=== PATIENT | male | born 1945 | race Caucasian/White ===

== ENCOUNTER 2020-10-29 22:30 | Observation (INO) | payer MEDICARE, OTHER ==
[2020-10-29] MEDS ORDERED: Sodium Chloride 0.9% 1000 ML 1,000 ML IV SCH (22:45)
--- NOTE | 2020-10-29 22:50 | ERPHSYRPT ---
- History of Present Illness Time Seen by Provider: 10/29/20 22:45 Source: patient, family, EMS Exam Limitations: no limitations Physician History: pt is 75 yr old with hx of falls prior and does not know how he fell but fell over mattresses onto face on floor - on xarelto blood thinner, with left hematoma; has prior tet booster reported last year per pt. neuro all intact. moving all ext but bilateral ribs tender and will get CT chest to r/o internal chest injury on blood thinner, mild neck pain at ROM, abd is nontender with mass or pain. GCS 15, [place] head injury trauma eval scale used and cannot exclude from imaging due to blood thinner, discussed risk and benefit and pt wishes to continue with CT. Occurred: just prior to arrival Severity: moderate Head Injury Location: frontal Method of Injury: fell Loss of Consciousness: no loss of consciousness Associated Symptoms: denies symptoms Allergies/Adverse Reactions: furosemide Allergy (Verified 10/29/20 23:05) latex Allergy (Verified 10/29/20 23:05) tetracycline Allergy (Verified 10/29/20 23:05) Home Medications: Dabigatran Etexilate Mesylate [Pradaxa] 150 mg PO BID 10/29/20 [History] Escitalopram Oxalate 10 mg [Lexapro 10 MG] 10 mg PO DAILY 10/29/20 [History] Fexofenadine HCl [Kailey] 60 mg PO BID 10/29/20 [History] Metoprolol Tartrate 25 mg PO DAILY 10/29/20 [History] Omeprazole 40 mg PO DAILY 10/29/20 [History] Rosuvastatin Calcium 40 mg PO HS 10/29/20 [History] Timolol Maleate/Dorzolam HCl [Cosopt Ophthalmic 10 ml] 1 drop OP BID 10/29/20 [History] Torsemide 20 mg [Demadex 20 mg] 20 mg PO BID 10/29/20 [History] - Review of Systems Constitutional: No Fever, No Chills Eyes: No Symptoms Ears, Nose, & Throat: Other (trauma left eyebrow) Respiratory: No Cough, No Dyspnea Cardiac: No Chest Pain, No Edema, No Syncope Abdominal/Gastrointestinal: No Abdominal Pain, No Nausea, No Vomiting, No Diarrhea Genitourinary Symptoms: No Dysuria Musculoskeletal: Neck Pain, Fall, No Back Pain Skin: No Rash Neurological: No Dizziness, No Focal Weakness, No Sensory Changes Psychological: No Symptoms Endocrine: No Symptoms Hematologic/Lymphatic: Other (on blood thinner) Immunological/Allergic: No Symptoms All Other Systems: Reviewed and Negative - Past Medical History Pertinent Past Medical History: Yes Cardiac History: Coronary Artery Disease Respiratory History: COPD - Nursing Vital Signs Nursing Vital Signs: Initial Vital Signs Temperature 98.2 F 10/29/20 22:31 Pulse Rate 72 10/29/20 22:31 Respiratory Rate 20 10/29/20 22:31 Blood Pressure 198/86 10/29/20 22:31 O2 Sat by Pulse Oximetry 99 10/29/20 22:31 Pain Scale Pain Intensity 0 - Manny Coma Score Best Eye Response (Manny): (4) open spontaneously Best Verbal Response ([address]): (5) oriented Best Motor Response ([address]): (6) obeys commands [address] Total: 15 - Physical Exam General Appearance: no apparent distress, alert Head Injury: ecchymosis, lacerations, swelling, tenderness Eye Exam: bilateral eye: PERRL, EOMI ENT Exam: airway nml Neck Exam: trachea midline, pain on movement of neck Cardiovascular/Respiratory Exam: chest non-tender, normal breath sounds, regular rate/rhythm Gastrointestinal/Abdominal Exam: soft, non tender, no distention Rectal Exam: deferred Back Exam: normal inspection, normal range of motion, No vertebral tenderness, No point tenderness Extremity Exam: non-tender, normal range of motion, normal inspection Mental Status Exam: alert, oriented x 3, 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 Exam: normal speech, PERRL, tongue midline, No facial droop Coordination/Gait Exam: normal cerebellar function Motor/Sensory Exam: no motor deficit, no sensory deficit, no pronator drift, CN II-XII intact DTR Exam: bicep (R): 2+, bicep (L): 2+, tricep (R): 2+, tricep (L): 2+, knee (R): 2+, knee (L): 2+, ankle (R): 2+, ankle (L): 2+ Skin Exam: normal color, warm, dry, laceration (left eyebrow), No rash SpO2 Interpretation: borderline oxygenation, O2 applied SpO2: 97 O2 Delivery: Nasal Cannula Procedures - Laceration/Wound Repair Left Frontal Wound Location: Left, forehead Wound Length (cm): 4 Wound's Depth, Shape: irregular, contused tissue, into subcut Wound Explored: no foreign body noted Irrigated: Yes (NS 100 cc ) Hibiclens Prep: Yes Anesthesia: local, 1% Lidocaine Volume Anesthetic (ccs): 4 Wound Debrided: minimal Wound Repaired With: sutures Suture Size/Type: 5-0, prolene Number of Sutures: 5 Layer Closure?: No Sterile Dressing Applied?: Yes Splint Applied?: No Sling Applied?: No - Course Nursing assessment & vital signs reviewed: Yes EKG Interpreted by Me: prolonged QT interval, Left Bundle Branch Block, Non- specific ST Changes, Other (pacer) - CT Exams Head CT Interpretation: Tele-radiologist Report, No/Intracranial Hemorrhag, Old Stroke (old lacunar cva s ), Other (left scalp lac/hematoma soft tissues) Cervical Spine CT Interpretation: Tele-radiologist Report, DJD, No Fracture, Other (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) Maxillofacial Bones CT Interpretation: Tele-radiologist Report, No Fracture, Other (left facial swelling/hematoma) Chest CT Interpretation: Tele-radiologist Report, Fracture (bilateral multiple ribs Fx), No PE, Other (Left effusion small right effusion, Right liver mass, CAD , cholelithiasis, ) Ordered Tests: Active Orders 24 hr Category Date Time Status Bus [employer] STAT Care 10/29/20 22:42 Active EKG-ER Only STAT Care 10/29/20 22:41 Active IV Insertion STAT Care 10/29/20 23:11 Active Oxygen-ED Only Nasal Cannula 2 lpm Care 10/29/20 22:41 Active Pulse Oximetry (ED) STAT Care 10/29/20 22:41 Active CERVICAL SPINE WO CONTRAST [CT] Stat Exams 10/29/20 22:37 Taken CHEST WITH CONTRAST [CT] Stat Exams 10/29/20 23:31 Taken FACIAL BONES WO CONTRAST [CT] Stat Exams 10/29/20 22:38 Taken HEAD WITHOUT CONTRAST [CT] Stat Exams 10/29/20 22:38 Taken CBC W DIFF Stat Lab 10/29/20 23:05 Completed CMP Stat Lab 10/29/20 23:05 Completed D-DIMER QUANTITATIVE Stat Lab 10/29/20 23:05 Completed Lactic Acid Stat Lab 10/29/20 22:58 Completed NT PRO BNP Stat Lab 10/29/20 23:05 Completed TROPONIN Q3H Lab 10/29/20 23:05 Completed TROPONIN Q3H Lab 10/30/20 01:45 Ordered TROPONIN Q3H Lab 10/30/20 04:45 Ordered TROPONIN Q3H Lab 10/30/20 07:45 Ordered TROPONIN Q3H Lab 10/30/20 10:45 Ordered UA W/RFX UR CULTURE Stat Lab 10/29/20 23:26 Completed Medication Summary Generic Name Dose Route Start Last Admin Trade Name Freq PRN Reason Stop Dose Admin Sodium Chloride 1,000 mls @ 100 mls/hr 10/29/20 22:45 10/29/20 23:00 Sodium Chloride 0.9% 1000 Ml IV 11/28/20 22:44 100 mls/hr .Q10H VANESSA Administration Discontinued Medications Generic Name Dose Route Start Last Admin Trade Name Freq PRN Reason Stop Dose Admin Lidocaine HCl Confirm 10/29/20 22:56 Xylocaine 1% Hcl 20 Ml Mdv Administered 10/29/20 22:57 Dose 5 ml .ROUTE .STK-MED ONE Metoprolol Tartrate 25 mg 10/30/20 00:11 10/30/20 00:26 Lopressor 25mg Tab PO 10/30/20 00:12 25 mg STAT ONE Administration Metoprolol Tartrate Confirm 10/30/20 00:26 Lopressor 25mg Tab Administered 10/30/20 00:27 Dose 25 mg .ROUTE .STK-MED ONE Lab/Rad Data: Laboratory Result Diagrams 10/29/20 23:05 10/29/20 23:05 Laboratory Results 10/29/20 10/29/20 10/29/20 Range/Units 23:26 23:05 23:05 WBC (4.0-10.5) K/mm3 RBC (4.1-5.6) M/mm3 Hgb (12.5-18.0) gm/dl Hct (42-50) % MCV (78-100) fl MCH (26-32) pg MCHC (32-36) g/dl RDW (11.5-14.0) % Plt Count (150-450) K/mm3 MPV (7.5-11.0) fl Gran % (36.0-66.0) % Eos # (Auto) (0-0.5) Absolute Lymphs (auto) (1.0-4.6) Absolute Monos (auto) (0.0-1.3) Lymphocytes % (24.0-44.0) % Monocytes % (0.0-12.0) % Eosinophils % (0.00-5.0) % Basophils % (0.0-0.4) % Absolute Granulocytes (1.4-6.9) Basophils # (0-0.4) D-Dimer 4949 H* (215-500) ng/mL Sodium (137-145) mmol/L Potassium (3.5-5.1) mmol/L Chloride (98-107) mmol/L Carbon Dioxide (22-30) mmol/L Anion Gap (5-15) MEQ/L BUN (9-20) mg/dL Creatinine (0.66-1.25) mg/dL Estimated GFR ML/MIN Glucose (74-106) mg/dL Lactic Acid (0.4-2.0) Calcium (8.4-10.2) mg/dL Total Bilirubin (0.2-1.3) mg/dL AST (17-59) U/L ALT (0-50) U/L Alkaline Phosphatase (38-126) U/L Troponin I 0.032 (0.000-0.034) ng/mL NT-Pro-B Natriuret Pep (0-1800) pg/mL Serum Total Protein (6.3-8.2) g/dL Albumin (3.5-5.0) g/dL Urine Color YELLOW (YELLOW) Urine Appearance SLIGHTLY CLOUDY (CLEAR) Urine pH 5.0 (5-6) Ur Specific [place] 1.015 (1.005-1.025) Urine Protein 100 (Negative) Urine Ketones NEGATIVE (NEGATIVE) Urine Blood NEGATIVE (0-5) Yung/ul Urine Nitrite NEGATIVE (NEGATIVE) Urine Bilirubin NEGATIVE (NEGATIVE) Urine Urobilinogen 2 (0-1) mg/dL Ur Leukocyte Esterase NEGATIVE (NEGATIVE) Urine WBC (Auto) 0-2 (0-5) /HPF Urine RBC (Auto) 0-2 (0-2) /HPF U Hyaline Cast (Auto) 11-25 (0-2) /LPF U Epithel Cells (Auto) NONE (FEW) /HPF Urine Bacteria (Auto) NONE (NEGATIVE) /HPF Urine Mucus (Auto) SLIGHT (NEGATIVE) /HPF Urine Culture Reflexed NO (NO) Urine Glucose 50 (NEGATIVE) mg/dL Slides for Path Review 10/29/20 10/29/20 10/29/20 Range/Units 23:05 23:05 22:58 WBC 3.7 L (4.0-10.5) K/mm3 RBC 4.17 (4.1-5.6) M/mm3 Hgb 11.8 L (12.5-18.0) gm/dl Hct 38.5 L (42-50) % MCV 92.3 (78-100) fl MCH 28.3 (26-32) pg MCHC 30.6 L (32-36) g/dl RDW 14.9 H (11.5-14.0) % Plt Count 160 (150-450) K/mm3 MPV 10.1 (7.5-11.0) fl Gran % 75.1 H (36.0-66.0) % Eos # (Auto) 0.07 (0-0.5) Absolute Lymphs (auto) 0.43 L (1.0-4.6) Absolute Monos (auto) 0.41 (0.0-1.3) Lymphocytes % 11.6 L (24.0-44.0) % Monocytes % 11.1 (0.0-12.0) % Eosinophils % 1.9 (0.00-5.0) % Basophils % 0.3 (0.0-0.4) % Absolute Granulocytes 2.78 (1.4-6.9) Basophils # 0.01 (0-0.4) D-Dimer (215-500) ng/mL Sodium 136 L (137-145) mmol/L Potassium 3.7 (3.5-5.1) mmol/L Chloride 97 L (98-107) mmol/L Carbon Dioxide 36 H (22-30) mmol/L Anion Gap 6.5 (5-15) MEQ/L BUN 21 H (9-20) mg/dL Creatinine 0.97 (0.66-1.25) mg/dL Estimated GFR > 60.0 ML/MIN Glucose 265 H (74-106) mg/dL Lactic Acid 1.0 (0.4-2.0) Calcium 9.4 (8.4-10.2) mg/dL Total Bilirubin 0.40 (0.2-1.3) mg/dL AST 66 H (17-59) U/L ALT 35 (0-50) U/L Alkaline Phosphatase 371 H (38-126) U/L Troponin I (0.000-0.034) ng/mL NT-Pro-B Natriuret Pep 3740 H (0-1800) pg/mL Serum Total Protein 6.2 L (6.3-8.2) g/dL Albumin 3.3 L (3.5-5.0) g/dL Urine Color (YELLOW) Urine Appearance (CLEAR) Urine pH (5-6) Ur Specific [place] (1.005-1.025) Urine Protein (Negative) Urine Ketones (NEGATIVE) Urine Blood (0-5) Yung/ul Urine Nitrite (NEGATIVE) Urine Bilirubin (NEGATIVE) Urine Urobilinogen (0-1) mg/dL Ur Leukocyte Esterase (NEGATIVE) Urine WBC (Auto) (0-5) /HPF Urine RBC (Auto) (0-2) /HPF U Hyaline Cast (Auto) (0-2) /LPF U Epithel Cells (Auto) (FEW) /HPF Urine Bacteria (Auto) (NEGATIVE) /HPF Urine Mucus (Auto) (NEGATIVE) /HPF Urine Culture Reflexed (NO) Urine Glucose (NEGATIVE) mg/dL Slides for Path Review YES - Progress Progress: improved, re-examined Progress Note: 10/30/20 01:15 discussed with pt, daughter and Dr. Linn covering and all agree best to place pt in for obs and serial trops , neuro and PT consult with f/u arranged for lever mass. 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
[2020-10-29] MEDS ORDERED: XYLOCAINE 1% HCL 20 ML MDV ONE (22:56)
[2020-10-29] MEDS ORDERED: Sodium Chloride 0.9% 1000 ML 1,000 ML ONE (22:58)
[2020-10-29 23:20] LABS: Absolute Neutrophil Ct (ANC) 2.78 (1.4-6.9); BASOPHIL % 0.3 % (0.0-0.4); Basophil (Absolute #) 0.01 (0-0.4); Eosinophil % 1.9 % (0.00-5.0); Eosinophil (Absolute #) 0.07 (0-0.5); Hematocrit 38.5 % (42-50); Hemoglobin 11.8 gm/dl (12.5-18.0); Lymphocyte (Absolute #) 0.43 (1.0-4.6); Lymphocytes % 11.6 % (24.0-44.0); Mean Cell Volume 92.3 fl (78-100); Mean Corpuscular Hemoglobin 28.3 pg (26-32); Mean Corpuscular Hgb Concent. 30.6 g/dl (32-36); Mean Platelet Volume 10.1 fl (7.5-11.0); Monocyte (Absolute #) 0.41 (0.0-1.3); Monocytes % 11.1 % (0.0-12.0); Neutrophil % 75.1 % (36.0-66.0); Platelet Count 160 K/mm3 (150-450); Red Blood Count 4.17 M/mm3 (4.1-5.6); Red Cell Distribution Width 14.9 % (11.5-14.0); White Blood Count 3.7 K/mm3 (4.0-10.5)
[2020-10-29 23:24] LABS: ALBUMIN 3.3 g/dL (3.5-5.0); ALKALINE PHOSPHATASE 371 U/L (38-126); ANION GAP 6.5 MEQ/L (5-15); BLOOD UREA NITROGEN 21 mg/dL (9-20); CHLORIDE 97 mmol/L (98-107); Calcium 9.4 mg/dL (8.4-10.2); Carbon Dioxide 36 mmol/L (22-30); Creatinine 1 0.97 mg/dL (0.66-1.25); EST GLOMERULAR FILTRATION RATE > 60.0 ML/MIN; Glucose 265 mg/dL (74-106); NT PRO BNP 3740 pg/mL (0-1800); Potassium 3.7 mmol/L (3.5-5.1); SGOT/AST 66 U/L (17-59); SGPT/ALT 35 U/L (0-50); SODIUM 136 mmol/L (137-145); Total Protein 6.2 g/dL (6.3-8.2)
[2020-10-29 23:30] LABS: Appearance SLIGHTLY CLOUDY (CLEAR); Bilirubin NEGATIVE (NEGATIVE); Blood NEGATIVE Ery/ul (0-5); Glucose 50 mg/dL (NEGATIVE); Ketones NEGATIVE (NEGATIVE); Leukocyte Esterase NEGATIVE (NEGATIVE); Mucus SLIGHT /HPF (NEGATIVE); Nitrite NEGATIVE (NEGATIVE); Protein,Urine Dip 100 (Negative); RBC 0-2 /HPF (0-2); Specific Gravity 1.015 (1.005-1.025); Urobilinogen 2 mg/dL (0-1); WBC 0-2 /HPF (0-5)
[2020-10-29 23:59] LABS: Slide Review 1 YES
[2020-10-30] MEDS ORDERED: Lopressor 25MG Tab PO ONE (00:11)
[2020-10-30] MEDS ORDERED: Lopressor 25MG Tab ONE (00:26)
[2020-10-30 02:29] LABS: INFLUENZA A NEGATIVE (NEGATIVE); INFLUENZA B NEGATIVE (NEGATIVE); RESPIRATORY SYNCTIAL VIRUS NEGATIVE (Negative)
[2020-10-30] MEDS ORDERED: Zofran 4 MG/2 ML VIAL IV PRN (03:12)
[2020-10-30] MEDS ORDERED: TYLENOL 325 MG PO PRN (03:12)
[2020-10-30] MEDS ORDERED: TRANDATE 20 MG/4 ML SYRINGE IV ONE (04:00)
[2020-10-30] MEDS: Sodium Chloride 0.9% 1000 ML 1,000 ML IV SCH ×2 (04:04→14:50)
[2020-10-30 05:44] LABS: Absolute Neutrophil Ct (ANC) 3.37 (1.4-6.9); BASOPHIL % 0.2 % (0.0-0.4); Basophil (Absolute #) 0.01 (0-0.4); Eosinophil % 0.7 % (0.00-5.0); Eosinophil (Absolute #) 0.03 (0-0.5); Hematocrit 37.4 % (42-50); Hemoglobin 11.5 gm/dl (12.5-18.0); Lymphocyte (Absolute #) 0.42 (1.0-4.6); Lymphocytes % 9.6 % (24.0-44.0); Mean Cell Volume 92.1 fl (78-100); Mean Corpuscular Hemoglobin 28.3 pg (26-32); Mean Corpuscular Hgb Concent. 30.7 g/dl (32-36); Mean Platelet Volume 10.1 fl (7.5-11.0); Monocyte (Absolute #) 0.53 (0.0-1.3); Monocytes % 12.2 % (0.0-12.0); Neutrophil % 77.3 % (36.0-66.0); Platelet Count 169 K/mm3 (150-450); Red Blood Count 4.06 M/mm3 (4.1-5.6); Red Cell Distribution Width 14.8 % (11.5-14.0); White Blood Count 4.4 K/mm3 (4.0-10.5)
[2020-10-30 05:55] LABS: ALBUMIN 3.2 g/dL (3.5-5.0); ALKALINE PHOSPHATASE 353 U/L (38-126); ANION GAP 5.1 MEQ/L (5-15); BLOOD UREA NITROGEN 21 mg/dL (9-20); CHLORIDE 99 mmol/L (98-107); Calcium 9.4 mg/dL (8.4-10.2); Carbon Dioxide 35 mmol/L (22-30); Creatinine 1 0.71 mg/dL (0.66-1.25); EST GLOMERULAR FILTRATION RATE > 60.0 ML/MIN; Glucose 263 mg/dL (74-106); Potassium 3.6 mmol/L (3.5-5.1); SGOT/AST 57 U/L (17-59); SGPT/ALT 34 U/L (0-50); SODIUM 135 mmol/L (137-145); Total Protein 6.1 g/dL (6.3-8.2)
[2020-10-30 07:42] LABS: Slide Review 1 YES
--- NOTE | 2020-10-30 08:37 | PCM.HP ---
History of Present Illness - Chief Complaint Chief Complaint: multiple rib fractures with COPD and effusion; Right liver Mass wt loss; History of Present Illness: is a 75 year old male with no local physician, he presented to the ER last night after a fall at home. he was getting up to switch chairs and states his left leg gave out, has a laceration above his left eye with bruising and swelling to left orbit, he is on pradaxa, sees Dr Posey for his cardiac care. He notes progressive increased weakness and weight loss over the last several weeks. He has pain in his chest only with movement, states he feels ok as long as he sits still. - Review of Systems Constitutional: No Fever, No Chills Eyes: Eye Pain Cardiac: Chest Pain Abdominal/Gastrointestinal: No Abdominal Pain, No Nausea, No Vomiting, No Diarrhea Genitourinary Symptoms: No Dysuria Skin: No Rash Neurological: No Symptoms Psychological: No Symptoms All Other Systems: Reviewed and Negative Medications & Allergies Home Medications: Home Medication List Dabigatran Etexilate Mesylate [Pradaxa] 150 mg PO BID 10/29/20 [History Confirmed 10/29/20] Escitalopram Oxalate 10 mg [Lexapro 10 MG] 20 mg PO DAILY 10/29/20 [History Confirmed 10/30/20] Fexofenadine HCl [Kailey] 60 mg PO BID 10/29/20 [History Confirmed 10/29/20] Metoprolol Tartrate 25 mg PO DAILY 10/29/20 [History Confirmed 10/29/20] Omeprazole 40 mg PO DAILY 10/29/20 [History Confirmed 10/29/20] Rosuvastatin Calcium 40 mg PO HS 10/29/20 [History Confirmed 10/29/20] Timolol Maleate/Dorzolam HCl [Cosopt Ophthalmic 10 ml] 1 drop OP BID 10/29/20 [History Confirmed 10/29/20] Torsemide 20 mg [Demadex 20 mg] 20 mg PO BID 10/29/20 [History Confirmed 10/29/20] Allergies/Adverse Reactions: Allergies Allergy/AdvReac Type Severity Reaction Status Date / Time adhesive tape Allergy Verified 10/30/20 04:10 latex Allergy Verified 10/29/20 23:05 tetracycline Allergy Verified 10/29/20 23:05 - Past Medical History Past Medical History: Yes Neurological History: No Pertinent History ENT History: Cataracts, Macular Degeneration Cardiac History: Congestive Heart Failure, Coronary Artery Disease, Hypertension, Myocardial Infarction ([place]) Respiratory History: COPD, Pneumonia Endocrine Medical History: Diabetes Type II Musculoskelatal History: Arthritis, Fractures GI Medical History: GERD History: No Pertinent History Pyscho-Social History: Depression Male Reproductive Disorders: No Pertinent History - Past Surgical History Past Surgical History: Yes Neuro Surgical History: No Pertinent History Cardiac History: CABG, Internal Defibrillator, Pacemaker Respiratory Surgery: No Pertinent History GI Surgical History: No Pertinent History Genitourinary Surgical Hx: No Pertinent History Musculskeletal Surgical Hx: No Pertinent History Male Surgical History: No Pertinent History Other Surgical History: CABG X 4 in 1972 - Social History Smoking Status: Former smoker How long have you smoked: 15 years Exposure to second hand smoke: No Alcohol: Rarely Drug Use: none - Physical Exam Vital Signs: Vital Signs - 24 hr Temp Pulse Resp BP Pulse Ox 10/30/20 08:00 97.3 F 64 27 H 189/71 97 10/30/20 04:11 98.5 F 75 20 196/92 99 10/30/20 03:34 77 23 99 10/30/20 03:03 70 178/80 100 10/30/20 02:00 61 18 182/75 99 10/30/20 01:20 97 10/30/20 01:00 59 L 18 190/82 100 10/30/20 00:07 77 210/87 97 10/29/20 23:10 90 L 10/29/20 22:31 98.2 F 72 20 198/86 99 General Appearance: no apparent distress Neurologic Exam: alert, oriented x 3, cooperative Eye Exam: other (left periorbital ecchymosis with significant swelling, well approximated laceration above left eye, no active bleeding) Respiratory Exam: normal breath sounds, other (chest wall tender bilaterally) Cardiovascular Exam: regular rate/rhythm, normal heart sounds, normal peripheral pulses Gastrointestinal/Abdomen Exam: soft, normal bowel sounds, No tenderness, No mass Results - Labs Lab/Micro Results: Lab Results-Last 24 Hours 10/29/20 10/29/20 10/29/20 Range/Units 22:58 23:05 23:05 WBC 3.7 L (4.0-10.5) K/mm3 RBC 4.17 (4.1-5.6) M/mm3 Hgb 11.8 L (12.5-18.0) gm/dl Hct 38.5 L (42-50) % MCV 92.3 (78-100) fl MCH 28.3 (26-32) pg MCHC 30.6 L (32-36) g/dl RDW 14.9 H (11.5-14.0) % Plt Count 160 (150-450) K/mm3 MPV 10.1 (7.5-11.0) fl Gran % 75.1 H (36.0-66.0) % Eos # (Auto) 0.07 (0-0.5) Absolute Lymphs (auto) 0.43 L (1.0-4.6) Absolute Monos (auto) 0.41 (0.0-1.3) Lymphocytes % 11.6 L (24.0-44.0) % Monocytes % 11.1 (0.0-12.0) % Eosinophils % 1.9 (0.00-5.0) % Basophils % 0.3 (0.0-0.4) % Absolute Granulocytes 2.78 (1.4-6.9) Basophils # 0.01 (0-0.4) D-Dimer (215-500) ng/mL Sodium 136 L (137-145) mmol/L Potassium 3.7 (3.5-5.1) mmol/L Chloride 97 L (98-107) mmol/L Carbon Dioxide 36 H (22-30) mmol/L Anion Gap 6.5 (5-15) MEQ/L BUN 21 H (9-20) mg/dL Creatinine 0.97 (0.66-1.25) mg/dL Estimated GFR > 60.0 ML/MIN Glucose 265 H (74-106) mg/dL POC Glucometer (74 to 106) mg/dL Lactic Acid 1.0 (0.4-2.0) Calcium 9.4 (8.4-10.2) mg/dL Total Bilirubin 0.40 (0.2-1.3) mg/dL AST 66 H (17-59) U/L ALT 35 (0-50) U/L Alkaline Phosphatase 371 H (38-126) U/L Troponin I (0.000-0.034) ng/mL NT-Pro-B Natriuret Pep 3740 H (0-1800) pg/mL Serum Total Protein 6.2 L (6.3-8.2) g/dL Albumin 3.3 L (3.5-5.0) g/dL Urine Color (YELLOW) Urine Appearance (CLEAR) Urine pH (5-6) Ur Specific [place] (1.005-1.025) Urine Protein (Negative) Urine Ketones (NEGATIVE) Urine Blood (0-5) Yung/ul Urine Nitrite (NEGATIVE) Urine Bilirubin (NEGATIVE) Urine Urobilinogen (0-1) mg/dL Ur Leukocyte Esterase (NEGATIVE) Urine WBC (Auto) (0-5) /HPF Urine RBC (Auto) (0-2) /HPF U Hyaline Cast (Auto) (0-2) /LPF U Epithel Cells (Auto) (FEW) /HPF Urine Bacteria (Auto) (NEGATIVE) /HPF Urine Mucus (Auto) (NEGATIVE) /HPF Urine Culture Reflexed (NO) Urine Glucose (NEGATIVE) mg/dL Influenza Type A Ag (NEGATIVE) Influenza Type B Ag (NEGATIVE) RSV (PCR) (Negative) SARS-CoV-2 (PCR) (NEGATIVE) Slides for Path Review YES 10/29/20 10/29/20 10/29/20 Range/Units 23:05 23:05 23:26 WBC (4.0-10.5) K/mm3 RBC (4.1-5.6) M/mm3 Hgb (12.5-18.0) gm/dl Hct (42-50) % MCV (78-100) fl MCH (26-32) pg MCHC (32-36) g/dl RDW (11.5-14.0) % Plt Count (150-450) K/mm3 MPV (7.5-11.0) fl Gran % (36.0-66.0) % Eos # (Auto) (0-0.5) Absolute Lymphs (auto) (1.0-4.6) Absolute Monos (auto) (0.0-1.3) Lymphocytes % (24.0-44.0) % Monocytes % (0.0-12.0) % Eosinophils % (0.00-5.0) % Basophils % (0.0-0.4) % Absolute Granulocytes (1.4-6.9) Basophils # (0-0.4) D-Dimer 4949 H* (215-500) ng/mL Sodium (137-145) mmol/L Potassium (3.5-5.1) mmol/L Chloride (98-107) mmol/L Carbon Dioxide (22-30) mmol/L Anion Gap (5-15) MEQ/L BUN (9-20) mg/dL Creatinine (0.66-1.25) mg/dL Estimated GFR ML/MIN Glucose (74-106) mg/dL POC Glucometer (74 to 106) mg/dL Lactic Acid (0.4-2.0) Calcium (8.4-10.2) mg/dL Total Bilirubin (0.2-1.3) mg/dL AST (17-59) U/L ALT (0-50) U/L Alkaline Phosphatase (38-126) U/L Troponin I 0.032 (0.000-0.034) ng/mL NT-Pro-B Natriuret Pep (0-1800) pg/mL Serum Total Protein (6.3-8.2) g/dL Albumin (3.5-5.0) g/dL Urine Color YELLOW (YELLOW) Urine Appearance SLIGHTLY CLOUDY (CLEAR) Urine pH 5.0 (5-6) Ur Specific [place] 1.015 (1.005-1.025) Urine Protein 100 (Negative) Urine Ketones NEGATIVE (NEGATIVE) Urine Blood NEGATIVE (0-5) Yung/ul Urine Nitrite NEGATIVE (NEGATIVE) Urine Bilirubin NEGATIVE (NEGATIVE) Urine Urobilinogen 2 (0-1) mg/dL Ur Leukocyte Esterase NEGATIVE (NEGATIVE) Urine WBC (Auto) 0-2 (0-5) /HPF Urine RBC (Auto) 0-2 (0-2) /HPF U Hyaline Cast (Auto) 11-25 (0-2) /LPF U Epithel Cells (Auto) NONE (FEW) /HPF Urine Bacteria (Auto) NONE (NEGATIVE) /HPF Urine Mucus (Auto) SLIGHT (NEGATIVE) /HPF Urine Culture Reflexed NO (NO) Urine Glucose 50 (NEGATIVE) mg/dL Influenza Type A Ag (NEGATIVE) Influenza Type B Ag (NEGATIVE) RSV (PCR) (Negative) SARS-CoV-2 (PCR) (NEGATIVE) Slides for Path Review 03/15/21 03/15/21 03/15/21 Range/Units 01:40 01:48 04:20 WBC 4.4 (4.0-10.5) K/mm3 RBC 4.06 L (4.1-5.6) M/mm3 Hgb 11.5 L (12.5-18.0) gm/dl Hct 37.4 L (42-50) % MCV 92.1 (78-100) fl MCH 28.3 (26-32) pg MCHC 30.7 L (32-36) g/dl RDW 14.8 H (11.5-14.0) % Plt Count 169 (150-450) K/mm3 MPV 10.1 (7.5-11.0) fl Gran % 77.3 H (36.0-66.0) % Eos # (Auto) 0.03 (0-0.5) Absolute Lymphs (auto) 0.42 L (1.0-4.6) Absolute Monos (auto) 0.53 (0.0-1.3) Lymphocytes % 9.6 L (24.0-44.0) % Monocytes % 12.2 H (0.0-12.0) % Eosinophils % 0.7 (0.00-5.0) % Basophils % 0.2 (0.0-0.4) % Absolute Granulocytes 3.37 (1.4-6.9) Basophils # 0.01 (0-0.4) D-Dimer (215-500) ng/mL Sodium (137-145) mmol/L Potassium (3.5-5.1) mmol/L Chloride (98-107) mmol/L Carbon Dioxide (22-30) mmol/L Anion Gap (5-15) MEQ/L BUN (9-20) mg/dL Creatinine (0.66-1.25) mg/dL Estimated GFR ML/MIN Glucose (74-106) mg/dL POC Glucometer (74 to 106) mg/dL Lactic Acid (0.4-2.0) Calcium (8.4-10.2) mg/dL Total Bilirubin (0.2-1.3) mg/dL AST (17-59) U/L ALT (0-50) U/L Alkaline Phosphatase (38-126) U/L Troponin I 0.043 H* (0.000-0.034) ng/mL NT-Pro-B Natriuret Pep (0-1800) pg/mL Serum Total Protein (6.3-8.2) g/dL Albumin (3.5-5.0) g/dL Urine Color (YELLOW) Urine Appearance (CLEAR) Urine pH (5-6) Ur Specific [place] (1.005-1.025) Urine Protein (Negative) Urine Ketones (NEGATIVE) Urine Blood (0-5) Yung/ul Urine Nitrite (NEGATIVE) Urine Bilirubin (NEGATIVE) Urine Urobilinogen (0-1) mg/dL Ur Leukocyte Esterase (NEGATIVE) Urine WBC (Auto) (0-5) /HPF Urine RBC (Auto) (0-2) /HPF U Hyaline Cast (Auto) (0-2) /LPF U Epithel Cells (Auto) (FEW) /HPF Urine Bacteria (Auto) (NEGATIVE) /HPF Urine Mucus (Auto) (NEGATIVE) /HPF Urine Culture Reflexed (NO) Urine Glucose (NEGATIVE) mg/dL Influenza Type A Ag NEGATIVE (NEGATIVE) Influenza Type B Ag NEGATIVE (NEGATIVE) RSV (PCR) NEGATIVE (Negative) SARS-CoV-2 (PCR) NEGATIVE (NEGATIVE) Slides for Path Review YES 10/30/20 10/30/20 10/30/20 Range/Units 04:20 04:45 07:59 WBC (4.0-10.5) K/mm3 RBC (4.1-5.6) M/mm3 Hgb (12.5-18.0) gm/dl Hct (42-50) % MCV (78-100) fl MCH (26-32) pg MCHC (32-36) g/dl RDW (11.5-14.0) % Plt Count (150-450) K/mm3 MPV (7.5-11.0) fl Gran % (36.0-66.0) % Eos # (Auto) (0-0.5) Absolute Lymphs (auto) (1.0-4.6) Absolute Monos (auto) (0.0-1.3) Lymphocytes % (24.0-44.0) % Monocytes % (0.0-12.0) % Eosinophils % (0.00-5.0) % Basophils % (0.0-0.4) % Absolute Granulocytes (1.4-6.9) Basophils # (0-0.4) D-Dimer (215-500) ng/mL Sodium 135 L (137-145) mmol/L Potassium 3.6 (3.5-5.1) mmol/L Chloride 99 (98-107) mmol/L Carbon Dioxide 35 H (22-30) mmol/L Anion Gap 5.1 (5-15) MEQ/L BUN 21 H (9-20) mg/dL Creatinine 0.71 (0.66-1.25) mg/dL Estimated GFR > 60.0 ML/MIN Glucose 263 H (74-106) mg/dL POC Glucometer 206 H (74 to 106) mg/dL Lactic Acid (0.4-2.0) Calcium 9.4 (8.4-10.2) mg/dL Total Bilirubin 0.40 (0.2-1.3) mg/dL AST 57 (17-59) U/L ALT 34 (0-50) U/L Alkaline Phosphatase 353 H (38-126) U/L Troponin I 0.048 H* (0.000-0.034) ng/mL NT-Pro-B Natriuret Pep (0-1800) pg/mL Serum Total Protein 6.1 L (6.3-8.2) g/dL Albumin 3.2 L (3.5-5.0) g/dL Urine Color (YELLOW) Urine Appearance (CLEAR) Urine pH (5-6) Ur Specific [place] (1.005-1.025) Urine Protein (Negative) Urine Ketones (NEGATIVE) Urine Blood (0-5) Yung/ul Urine Nitrite (NEGATIVE) Urine Bilirubin (NEGATIVE) Urine Urobilinogen (0-1) mg/dL Ur Leukocyte Esterase (NEGATIVE) Urine WBC (Auto) (0-5) /HPF Urine RBC (Auto) (0-2) /HPF U Hyaline Cast (Auto) (0-2) /LPF U Epithel Cells (Auto) (FEW) /HPF Urine Bacteria (Auto) (NEGATIVE) /HPF Urine Mucus (Auto) (NEGATIVE) /HPF Urine Culture Reflexed (NO) Urine Glucose (NEGATIVE) mg/dL Influenza Type A Ag (NEGATIVE) Influenza Type B Ag (NEGATIVE) RSV (PCR) (Negative) SARS-CoV-2 (PCR) (NEGATIVE) Slides for Path Review Accuchecks Date 10/30/20 Time 07:30 - Radiology Impressions Radiology Exams & Impressions: Radiology Procedures Category Date Time Status CERVICAL SPINE WO CONTRAST [CT] Stat Exams 10/29/20 22:37 Taken CHEST WITH CONTRAST [CT] Stat Exams 10/29/20 23:31 Taken FACIAL BONES WO CONTRAST [CT] Stat Exams 10/29/20 22:38 Taken HEAD WITHOUT CONTRAST [CT] Stat Exams 10/29/20 22:38 Taken - Other Procedures and Tests Respiratory Therapy 10/30/20 03:12 Oxygen Nasal Cannula 2 lpm 10/30/20 04:08 Respiratory Therapy Assessment DAILY 10/30/20 05:37 Incentive Spirometry TID Assessment/Plan (1) Multiple fractures of ribs, bilateral, initial encounter for closed fracture Current Visit: Yes Status: Acute Assessment & Plan: pain control, will consult PT Code(s): S22.43XA - MULTIPLE FRACTURES OF RIBS, BILATERAL, INIT FOR CLOS FX (2) Liver mass, right lobe Current Visit: Yes Status: Acute Assessment & Plan: discussed with patient will need outpatient workup and biopsy but will need to likely heal some from fall and laceration and multiple rib fractures Code(s): R16.0 - HEPATOMEGALY, NOT ELSEWHERE CLASSIFIED (3) Weakness Current Visit: Yes Status: Acute Code(s): R53.1 - WEAKNESS (4) Cholelithiasis Current Visit: Yes Status: Acute (5) Facial laceration Current Visit: Yes Status: Acute Assessment & Plan: well approximated Code(s): S01.81XA - LACERATION W/O FOREIGN BODY OF OTH PART OF HEAD, INIT ENCNTR (6) Injury of face Current Visit: Yes Status: Acute Code(s): S09.93XA - UNSPECIFIED INJURY OF FACE, INITIAL ENCOUNTER
[2020-10-30] MEDS ORDERED: APRESOLINE 20 MG/ML INJ IV PRN (08:40)
--- NOTE | 2020-10-30 08:50 | XRAY ---
Indication: Head injury following fall. Left periorbital hematoma. Multiple contiguous axial images obtained through the head without contrast. Comparison: None Age-appropriate global atrophy and moderate periventricular degenerative micro-ischemia bilaterally. Right vertex demonstrates small focus remote infarct. Right thalamus and right basal ganglia demonstrates remote lacunar infarcts. No acute intracranial hemorrhage, abnormal extra-axial fluid collection, or mass effect. Fourth ventricle is midline without hydrocephalus. Moderate sized left supraorbital soft tissue swelling/hematoma. Bony calvarium intact. Visualized paranasal sinuses and mastoid air cells are clear. Impression: 1. Left supraorbital soft tissue swelling/hematoma. No acute intracranial abnormalities or underlying fracture. 2. Aging brain including atrophy and degenerative micro-ischemia. Remote lacunar infarcts right thalamus/right basal ganglia and small remote infarct right vertex. Comment: Preliminary interpretation was made by [facility]. No critical discrepancy.
--- NOTE | 2020-10-30 09:08 | XRAY ---
Indication: Head injury following fall. Multiple contiguous axial images obtained through the cervical spine. Sagittal and coronal reformatted images obtained. Comparison: None Osseous structures demineralized consistent with patient's age. Axial images negative for acute fracture, suspicious bony lesions, or spinal canal stenosis. Mild C6-C7 degenerative endplate spurring and mild multilevel bilateral degenerative facet arthropathy. Additional moderate atlantoaxial degenerative arthropathy. Sagittal and coronal reformatted images demonstrates normal alignment with C6-C7 disc space narrowing. No acute compression fracture, subluxation, or jumped facet. Normal appearing cranial cervical junction. Visualized noncontrasted soft tissues demonstrates heavy scattered vascular calcifications bilaterally. CT head, CT facial bones, and CT chest reported separately. Impression: 1. Negative acute fracture/subluxation. 2. Incidental osteopenia, multilevel degenerative changes, and scattered arteriosclerotic disease. Comment: Preliminary interpretation was made by [facility]. No critical discrepancy.
--- NOTE | 2020-10-30 09:09 | XRAY ---
Indication: Head injury following fall. Left periorbital hematoma. Multiple contiguous axial images obtained through the facial bones. Sagittal and coronal reformatted images obtained. Comparison: None Patient is edentulous. Age-related osteopenia. Moderate sized left supraorbital soft tissue swelling/hematoma. No acute fracture, suspicious bony lesions, or radiopaque foreign body. Orbits including roof, shi, and floors intact. Paranasal sinuses and nasal passages are clear. Mild nasoseptal deviation to the left. Visualized noncontrasted soft tissues demonstrates tiny air bubbles in the deep chinchilla machine operator space bilaterally, temporalis muscles bilaterally, and right TMJ with no clear etiology. Heavy scattered vascular calcifications bilaterally. CT head, CT cervical spine, and CT chest reported separately. Impression: 1. Left supraorbital soft tissue swelling/hematoma. Negative for facial bone fracture. 2. Tiny air bubbles in the deep chinchilla machine operator and along the temporalis muscles bilaterally. Without obvious fracture or laceration, rule out inflammatory/infectious etiologies. 3. Incidental osteopenia, scattered arteriosclerotic disease, and nasoseptal deviation. Comment: Preliminary interpretation was made by [facility] who does not report soft tissue air bubbles.
[2020-10-30] MEDS: Zestril 10 MG PO SCH (09:15)
[2020-10-30] MEDS: PRADAXA 75 MG PO SCH ×2 (09:15→22:45)
[2020-10-30] MEDS: Pepcid 20 MG PO SCH ×2 (09:15→22:45)
[2020-10-30] MEDS: DEMADEX 20 MG PO SCH ×2 (09:15→17:05)
[2020-10-30] MEDS: HUMALOG SQ PRN ×4 (09:16→22:45)
--- NOTE | 2020-10-30 09:16 | XRAY ---
Indication: Head injury following fall. Multiple contiguous axial images obtained through the chest using 100 cc Isovue 370 contrast and PE protocol. Comparison: None There is good opacification of the pulmonary arteries to include the lobar and segmental branches. No pulmonary embolus. Heart is enlarged and demonstrates coronary calcifications, CABG surgery, and left AICD. Aorta is mildly arteriosclerotic without aneurysm/dissection. No pathologic mediastinal/hilar lymphadenopathy. Lungs demonstrates large bilateral effusions, left greater than right with bibasilar compressive atelectasis. Bony thorax demonstrates multiple bilateral acute to subacute nondisplaced rib fractures, osteopenia, and following osteophytes throughout the spine. Limited upper abdomen demonstrates 14 cm heterogeneously enhancing hepatic mass, 17.6 cm splenomegaly, multiple gallstones, extensive vascular calcifications, and incompletely visualized ascites. Impression: 1. Negative pulmonary embolus. 2. Cardiomegaly with large bilateral effusions. Rule out cardiac decompensation/CHF versus fluid overload. Also incompletely visualized abdominal ascites which may be related. 3. Multiple bilateral acute subacute rib fractures. Also osteopenia and flowing osteophytes throughout the spine. 4. 14 cm heterogeneously enhancing hepatic mass. Finding could be giant hemangioma. Malignancy not completely excluded. Outside comparison studies recommended if available. 5. Incidental multiple gallstones and splenomegaly. Comment: Preliminary interpretation was made by [facility]. No critical discrepancy.
[2020-10-30] MEDS: Lopressor 25MG Tab PO SCH (09:23)
[2020-10-30] MEDS: Lexapro 10 MG PO SCH (09:24)
[2020-10-30] MEDS: COSOPT OPHTHALMIC 10 ML OP SCH ×2 (09:28→22:45)
[2020-10-30] MEDS: Protonix 40MG Tablet PO SCH (09:28)
[2020-10-30] MEDS ORDERED: NON-FORMULARY ITEM (Omeprazole [Omeprazole] 40 MG) PO SCH (10:00)
[2020-10-30] MEDS ORDERED: Lopressor 25MG Tab PO SCH (10:00)
[2020-10-30] MEDS ORDERED: Lexapro 10 MG PO SCH (10:00)
[2020-10-30] MEDS ORDERED: NON-FORMULARY ITEM (Rosuvastatin Calcium [Rosuvastatin Calcium] 40 MG) PO SCH (22:00)
[2020-10-30] MEDS ORDERED: ZOCOR 20MG PO SCH (22:00)
[2020-10-31] MEDS: NORCO 7.5/325 MG TAB PO PRN ×2 (00:49→11:06)
[2020-10-31 05:21] LABS: Absolute Neutrophil Ct (ANC) 3.37 (1.4-6.9); BASOPHIL % 0.4 % (0.0-0.4); Basophil (Absolute #) 0.02 (0-0.4); Eosinophil % 3.2 % (0.00-5.0); Eosinophil (Absolute #) 0.15 (0-0.5); Hematocrit 37.2 % (42-50); Hemoglobin 11.3 gm/dl (12.5-18.0); Lymphocyte (Absolute #) 0.59 (1.0-4.6); Lymphocytes % 12.5 % (24.0-44.0); Mean Cell Volume 93.2 fl (78-100); Mean Corpuscular Hemoglobin 28.3 pg (26-32); Mean Corpuscular Hgb Concent. 30.4 g/dl (32-36); Mean Platelet Volume 10.3 fl (7.5-11.0); Monocyte (Absolute #) 0.58 (0.0-1.3); Monocytes % 12.3 % (0.0-12.0); Neutrophil % 71.6 % (36.0-66.0); Platelet Count 181 K/mm3 (150-450); Red Blood Count 3.99 M/mm3 (4.1-5.6); White Blood Count 4.7 K/mm3 (4.0-10.5)
[2020-10-31 05:36] LABS: Slide Review 1 YES
[2020-10-31 05:37] LABS: ALKALINE PHOSPHATASE 287 U/L (38-126); ANION GAP 7.1 MEQ/L (5-15); BLOOD UREA NITROGEN 22 mg/dL (9-20); CHLORIDE 100 mmol/L (98-107); Calcium 9.1 mg/dL (8.4-10.2); Carbon Dioxide 36 mmol/L (22-30); Creatinine 1 0.72 mg/dL (0.66-1.25); EST GLOMERULAR FILTRATION RATE > 60.0 ML/MIN; Glucose 144 mg/dL (74-106); Potassium 3.2 mmol/L (3.5-5.1); SGOT/AST 44 U/L (17-59); SGPT/ALT 26 U/L (0-50); SODIUM 140 mmol/L (137-145); Total Protein 5.8 g/dL (6.3-8.2)
--- NOTE | 2020-10-31 08:35 | PCM.NOTE ---
Date and Time: 10/31/20829 Subjective Assessment: Pt is having some stiffness. There is a report from previous RN that pt possibly needed 2 assist to get up (has not been up yet this morning). Nadeen po well. - Review of Systems Constitutional: No Fever Musculoskeletal: Injury Objective Exam General Appearance: no apparent distress, alert Neurologic Exam: cooperative, other (moves all extremities) Skin Exam: warm, dry, No rash Eye Exam: other (L eye with large amount of surrounding bruising) Respiratory Exam: lungs clear, other (lungs diminished, particularly at bases), No crackles/rales, No rhonchi, No wheezing Cardiovascular Exam: regular rate/rhythm, normal heart sounds, No murmur Gastrointestinal/Abdomen Exam: soft, normal bowel sounds, tenderness (diffuse, mild), No mass, No guarding, No rebound Extremity Exam: other (LLE with bandage in place anterio-laterally, distally. no radha edema bilat.) Back Exam: normal inspection, No rash OBJECTIVE DATA Vital Signs: Vital Signs - 24 hr Temp Pulse Resp BP Pulse Ox 10/31/20 08:00 97.7 F 77 10 L 192/84 98 10/31/20 07:31 72 10/31/20 05:00 97.8 F 72 18 153/74 96 10/31/20 04:00 71 10/31/20 01:30 79 19 144/73 98 10/31/20 00:01 74 10/31/20 00:00 74 20 174/71 100 10/30/20 22:25 94 L 10/30/20 20:00 98.2 F 69 20 165/66 97 10/30/20 16:00 97.7 F 66 21 122/56 91 L 10/30/20 12:00 97.5 F 66 24 140/65 94 L 10/30/20 10:29 93 L Pain Assessment - Last Documented Pain Intensity 0 Pain Scale Used 0-10 Pain Scale Intake and Output: Intake & Output 10/28/20 10/29/20 10/30/20 10/31/20 10:59 11:59 11:59 11:59 Intake Total 792 1950 Output Total 370 790 Balance 422 1160 Weight 108.3 kg 108.6 kg Lab Results: Lab Results-Last 24 Hours 03/15/21 03/15/21 03/15/21 Range/Units 05:00 08:10 10:41 WBC (4.0-10.5) K/mm3 RBC (4.1-5.6) M/mm3 Hgb (12.5-18.0) gm/dl Hct (42-50) % MCV (78-100) fl MCH (26-32) pg MCHC (32-36) g/dl RDW (11.5-14.0) % Plt Count (150-450) K/mm3 MPV (7.5-11.0) fl Gran % (36.0-66.0) % Eos # (Auto) (0-0.5) Absolute Lymphs (auto) (1.0-4.6) Absolute Monos (auto) (0.0-1.3) Lymphocytes % (24.0-44.0) % Monocytes % (0.0-12.0) % Eosinophils % (0.00-5.0) % Basophils % (0.0-0.4) % Absolute Granulocytes (1.4-6.9) Basophils # (0-0.4) Sodium (137-145) mmol/L Potassium (3.5-5.1) mmol/L Chloride (98-107) mmol/L Carbon Dioxide (22-30) mmol/L Anion Gap (5-15) MEQ/L BUN (9-20) mg/dL Creatinine (0.66-1.25) mg/dL Estimated GFR ML/MIN Glucose (74-106) mg/dL POC Glucometer (74 to 106) mg/dL Hemoglobin A1c 7.33 H (4.5-6.0) % Calcium (8.4-10.2) mg/dL Total Bilirubin (0.2-1.3) mg/dL AST (17-59) U/L ALT (0-50) U/L Alkaline Phosphatase (38-126) U/L Troponin I 0.049 H* 0.046 H* (0.000-0.034) ng/mL Serum Total Protein (6.3-8.2) g/dL Albumin (3.5-5.0) g/dL Slides for Path Review 10/30/20 10/30/20 10/30/20 Range/Units 11:26 15:41 21:59 WBC (4.0-10.5) K/mm3 RBC (4.1-5.6) M/mm3 Hgb (12.5-18.0) gm/dl Hct (42-50) % MCV (78-100) fl MCH (26-32) pg MCHC (32-36) g/dl RDW (11.5-14.0) % Plt Count (150-450) K/mm3 MPV (7.5-11.0) fl Gran % (36.0-66.0) % Eos # (Auto) (0-0.5) Absolute Lymphs (auto) (1.0-4.6) Absolute Monos (auto) (0.0-1.3) Lymphocytes % (24.0-44.0) % Monocytes % (0.0-12.0) % Eosinophils % (0.00-5.0) % Basophils % (0.0-0.4) % Absolute Granulocytes (1.4-6.9) Basophils # (0-0.4) Sodium (137-145) mmol/L Potassium (3.5-5.1) mmol/L Chloride (98-107) mmol/L Carbon Dioxide (22-30) mmol/L Anion Gap (5-15) MEQ/L BUN (9-20) mg/dL Creatinine (0.66-1.25) mg/dL Estimated GFR ML/MIN Glucose (74-106) mg/dL POC Glucometer 277 H 216 H 185 H (74 to 106) mg/dL Hemoglobin A1c (4.5-6.0) % Calcium (8.4-10.2) mg/dL Total Bilirubin (0.2-1.3) mg/dL AST (17-59) U/L ALT (0-50) U/L Alkaline Phosphatase (38-126) U/L Troponin I (0.000-0.034) ng/mL Serum Total Protein (6.3-8.2) g/dL Albumin (3.5-5.0) g/dL Slides for Path Review 10/31/20 10/31/20 10/31/20 Range/Units 04:27 04:27 07:29 WBC 4.7 (4.0-10.5) K/mm3 RBC 3.99 L (4.1-5.6) M/mm3 Hgb 11.3 L (12.5-18.0) gm/dl Hct 37.2 L (42-50) % MCV 93.2 (78-100) fl MCH 28.3 (26-32) pg MCHC 30.4 L (32-36) g/dl RDW 15.0 H (11.5-14.0) % Plt Count 181 (150-450) K/mm3 MPV 10.3 (7.5-11.0) fl Gran % 71.6 H (36.0-66.0) % Eos # (Auto) 0.15 (0-0.5) Absolute Lymphs (auto) 0.59 L (1.0-4.6) Absolute Monos (auto) 0.58 (0.0-1.3) Lymphocytes % 12.5 L (24.0-44.0) % Monocytes % 12.3 H (0.0-12.0) % Eosinophils % 3.2 (0.00-5.0) % Basophils % 0.4 (0.0-0.4) % Absolute Granulocytes 3.37 (1.4-6.9) Basophils # 0.02 (0-0.4) Sodium 140 (137-145) mmol/L Potassium 3.2 L (3.5-5.1) mmol/L Chloride 100 (98-107) mmol/L Carbon Dioxide 36 H (22-30) mmol/L Anion Gap 7.1 (5-15) MEQ/L BUN 22 H (9-20) mg/dL Creatinine 0.72 (0.66-1.25) mg/dL Estimated GFR > 60.0 ML/MIN Glucose 144 H (74-106) mg/dL POC Glucometer 139 H (74 to 106) mg/dL Hemoglobin A1c (4.5-6.0) % Calcium 9.1 (8.4-10.2) mg/dL Total Bilirubin 0.40 (0.2-1.3) mg/dL AST 44 (17-59) U/L ALT 26 (0-50) U/L Alkaline Phosphatase 287 H (38-126) U/L Troponin I (0.000-0.034) ng/mL Serum Total Protein 5.8 L (6.3-8.2) g/dL Albumin 3.0 L (3.5-5.0) g/dL Slides for Path Review YES Radiology Exams: Radiology Procedures Category Date Time Status CERVICAL SPINE WO CONTRAST [CT] Stat Exams 10/29/20 22:37 Completed CHEST WITH CONTRAST [CT] Stat Exams 10/29/20 23:31 Completed FACIAL BONES WO CONTRAST [CT] Stat Exams 10/29/20 22:38 Completed HEAD WITHOUT CONTRAST [CT] Stat Exams 10/29/20 22:38 Completed Assessment/Plan (1) Fall Current Visit: Yes Status: Acute Qualifiers: Encounter type: subsequent encounter Qualified Code(s): W19.XXXD - Unspecified fall, subsequent encounter Assessment & Plan: Pt getting PT/OT - he does apparently have a walker at home, but has trouble with his L knee buckling as he walks. Code(s): W19.XXXA - UNSPECIFIED FALL, INITIAL ENCOUNTER (2) Rib fracture Current Visit: Yes Status: Acute Qualifiers: Encounter type: subsequent encounter Rib fracture type: multiple ribs Fracture type: closed Laterality: unspecified laterality Fracture healing: with routine healing Qualified Code(s): S22.49XD - Multiple fractures of ribs, unspecified side, subsequent encounter for fracture with routine healing Code(s): S22.39XA - FRACTURE OF ONE RIB, UNSP SIDE, INIT FOR CLOS FX (3) Liver mass, right lobe Current Visit: Yes Status: Acute Assessment & Plan: new dx Code(s): R16.0 - HEPATOMEGALY, NOT ELSEWHERE CLASSIFIED (4) Weakness Current Visit: Yes Status: Chronic Assessment & Plan: RN discussed options with pt this morning - will likely go home with home health later today. Code(s): R53.1 - WEAKNESS
[2020-10-31] MEDS: DEMADEX 20 MG PO SCH (09:06)
[2020-10-31] MEDS: PRADAXA 75 MG PO SCH (09:06)
[2020-10-31] MEDS: Zestril 10 MG PO SCH (09:06)
[2020-10-31] MEDS: Lexapro 10 MG PO SCH (09:07)
[2020-10-31] MEDS: Pepcid 20 MG PO SCH (09:07)
[2020-10-31] MEDS: Protonix 40MG Tablet PO SCH (09:07)
[2020-10-31] MEDS: Lopressor 25MG Tab PO SCH (09:07)
[2020-10-31] MEDS: COSOPT OPHTHALMIC 10 ML OP SCH (09:07)
[2020-10-31 12:23] VITALS: BP 142/71; PULSE 56; O2SAT 97
--- NOTE | 2020-10-31 15:12 | PCM.DS ---
Discharge Summary Date of Admission: 10/30/20 03:11 Admitting Physician: LORENA PRAKASH Primary Care Provider: PILI ALMEIDA Allergies Allergies adhesive tape Allergy (Verified 10/30/20 04:10) latex Allergy (Verified 10/29/20 23:05) tetracycline Allergy (Verified 10/29/20 23:05) Hospital Summary - Hospital Course Hospital Course: Pt is 75 yo male pt with no local MD and hx mild cognitive impairment and hypertension admitted through ER after a fall. He was at home, tried to switch chairs and his L knee gave out and he fell. In the ER, CTs of the C-spine, facial bones, and head did not show any fractures, just soft tissue air bubbles in the face and supraorbital swelling. CT chest showed no PE, cardiomegaly with large bilat pleural effusions, multiple bilat acute/subacute rib fx, and a 14 cm hepatic mass (possibly giant hemangioma, can't exclude malignancy). Also showed incidental multiple gallstones and splenomegaly. The liver mass will need to be worked up outpatient, so he will definitely need outpatient followup. He had hypertensive urgency on admission and 10mg lisinopril was added to his medication list. He has done well with PT/OT and today only required standby and a walker to get to the bathroom. He will be discharged to home with home health. - Vitals & Intake/Output Vital Signs: Vital Signs Temperature 97.2 F 10/31/20 12:00 Pulse Rate 56 L 10/31/20 12:00 Respiratory Rate 18 10/31/20 12:00 Blood Pressure 142/71 10/31/20 12:00 O2 Sat by Pulse Oximetry 97 10/31/20 12:00 Intake & Output: Intake & Output 10/29/20 10/30/20 10/31/20 11/01/20 11:59 11:59 11:59 11:59 Intake Total 792 2190 Output Total 370 990 Balance 422 1200 Weight 108.3 kg 108.6 kg - Lab Result Diagrams: 10/31/20 04:27 10/31/20 04:27 Lab Results-Last 24 Hrs: Lab Results-Last 24 Hours 10/30/20 10/30/20 10/31/20 Range/Units 15:41 21:59 04:27 WBC 4.7 (4.0-10.5) K/mm3 RBC 3.99 L (4.1-5.6) M/mm3 Hgb 11.3 L (12.5-18.0) gm/dl Hct 37.2 L (42-50) % MCV 93.2 (78-100) fl MCH 28.3 (26-32) pg MCHC 30.4 L (32-36) g/dl RDW 15.0 H (11.5-14.0) % Plt Count 181 (150-450) K/mm3 MPV 10.3 (7.5-11.0) fl Gran % 71.6 H (36.0-66.0) % Eos # (Auto) 0.15 (0-0.5) Absolute Lymphs (auto) 0.59 L (1.0-4.6) Absolute Monos (auto) 0.58 (0.0-1.3) Lymphocytes % 12.5 L (24.0-44.0) % Monocytes % 12.3 H (0.0-12.0) % Eosinophils % 3.2 (0.00-5.0) % Basophils % 0.4 (0.0-0.4) % Absolute Granulocytes 3.37 (1.4-6.9) Basophils # 0.02 (0-0.4) Sodium (137-145) mmol/L Potassium (3.5-5.1) mmol/L Chloride (98-107) mmol/L Carbon Dioxide (22-30) mmol/L Anion Gap (5-15) MEQ/L BUN (9-20) mg/dL Creatinine (0.66-1.25) mg/dL Estimated GFR ML/MIN Glucose (74-106) mg/dL POC Glucometer 216 H 185 H (74 to 106) mg/dL Calcium (8.4-10.2) mg/dL Total Bilirubin (0.2-1.3) mg/dL AST (17-59) U/L ALT (0-50) U/L Alkaline Phosphatase (38-126) U/L Serum Total Protein (6.3-8.2) g/dL Albumin (3.5-5.0) g/dL Slides for Path Review YES 10/31/20 10/31/20 10/31/20 Range/Units 04:27 07:29 11:31 WBC (4.0-10.5) K/mm3 RBC (4.1-5.6) M/mm3 Hgb (12.5-18.0) gm/dl Hct (42-50) % MCV (78-100) fl MCH (26-32) pg MCHC (32-36) g/dl RDW (11.5-14.0) % Plt Count (150-450) K/mm3 MPV (7.5-11.0) fl Gran % (36.0-66.0) % Eos # (Auto) (0-0.5) Absolute Lymphs (auto) (1.0-4.6) Absolute Monos (auto) (0.0-1.3) Lymphocytes % (24.0-44.0) % Monocytes % (0.0-12.0) % Eosinophils % (0.00-5.0) % Basophils % (0.0-0.4) % Absolute Granulocytes (1.4-6.9) Basophils # (0-0.4) Sodium 140 (137-145) mmol/L Potassium 3.2 L (3.5-5.1) mmol/L Chloride 100 (98-107) mmol/L Carbon Dioxide 36 H (22-30) mmol/L Anion Gap 7.1 (5-15) MEQ/L BUN 22 H (9-20) mg/dL Creatinine 0.72 (0.66-1.25) mg/dL Estimated GFR > 60.0 ML/MIN Glucose 144 H (74-106) mg/dL POC Glucometer 139 H 126 H (74 to 106) mg/dL Calcium 9.1 (8.4-10.2) mg/dL Total Bilirubin 0.40 (0.2-1.3) mg/dL AST 44 (17-59) U/L ALT 26 (0-50) U/L Alkaline Phosphatase 287 H (38-126) U/L Serum Total Protein 5.8 L (6.3-8.2) g/dL Albumin 3.0 L (3.5-5.0) g/dL Slides for Path Review Micro Results-Entire Visit: Accuchecks Date 10/31/20 Date 10/31/20 Date 10/30/20 Date 10/30/20 Time 11:36 Time 16:30 Time 16:30 - Radiology Exams Ordered Rad Exams-Entire Visit: Radiology Procedures Category Date Time Status CERVICAL SPINE WO CONTRAST [CT] Stat Exams 10/29/20 22:37 Completed CHEST WITH CONTRAST [CT] Stat Exams 10/29/20 23:31 Completed FACIAL BONES WO CONTRAST [CT] Stat Exams 10/29/20 22:38 Completed HEAD WITHOUT CONTRAST [CT] Stat Exams 10/29/20 22:38 Completed - Procedures and Test Procedures and Tests throughout Hospitalization: Therapy Orders & Screens 10/30/20 03:12 Oxygen Nasal Cannula 2 lpm Comment: Respiratory Therapy Consult ROUTINE Comment: Reason For Exam: 10/30/20 04:08 Respiratory Therapy Assessment DAILY Comment: 10/30/20 05:37 Incentive Spirometry TID Comment: Diagnosis: multiple rib fractures with COPD and effusion; Right liver Mass wt loss; 10/30/20 08:31 PT Eval & Treat (MD Order) ONCE Reason for Eval:: fall, weakness Diagnosis: multiple rib fractures with COPD and effusion; Right liver Mass wt loss; Discharge Exam General Appearance: no apparent distress, other Neurologic Exam: cooperative, normal mood/affect Eye Exam: other (L superior and inferior eyelids with purple discoloration.) Ears, Nose, Throat Exam: moist mucous membranes Neck Exam: full range of motion Respiratory Exam: lungs clear, diminished breath sounds (throughout, more so on bases), No crackles/rales, No rhonchi, No wheezing Cardiovascular Exam: regular rate/rhythm, normal heart sounds, No murmur Gastrointestinal/Abdomen Exam: soft, normal bowel sounds, tenderness (generalized, mild) Back Exam: normal inspection, No rash Extremity Exam: No pedal edema, No swelling Skin Exam: warm, dry, No rash Final Diagnosis/Problem List - Final Discharge Diagnosis/Problem (1) Fall Current Visit: Yes Status: Acute Code(s): W19.XXXA - UNSPECIFIED FALL, INITIAL ENCOUNTER (2) Rib fracture Current Visit: Yes Status: Acute Assessment & Plan: home with PT/OT ([facility]). Code(s): S22.39XA - FRACTURE OF ONE RIB, UNSP SIDE, INIT FOR CLOS FX (3) Liver mass, right lobe Current Visit: Yes Status: Acute Assessment & Plan: f/u outpatient. Code(s): R16.0 - HEPATOMEGALY, NOT ELSEWHERE CLASSIFIED (4) Weakness Current Visit: Yes Status: Chronic Code(s): R53.1 - WEAKNESS (5) Hypertension Current Visit: Yes Status: Acute Assessment & Plan: added lisinopril 10mg /d Code(s): I10 - ESSENTIAL (PRIMARY) HYPERTENSION - Discharge Disposition: Home, Self-Care Condition: Stable Prescriptions: New Hydrocodone Bit/Acetaminophen [Hydrocodon-Acetaminophen 5-325] 1 each PO Q6H PRN #28 tablet PRN Reason: Severe Pain Lisinopril 10 mg [Zestril 10 MG] 10 mg PO DAILY #30 tablet Continue Omeprazole 40 mg PO DAILY Dabigatran Etexilate Mesylate [Pradaxa] 150 mg PO BID Timolol Maleate/Dorzolam HCl [Cosopt Ophthalmic 10 ml] 1 drop OP BID Rosuvastatin Calcium 40 mg PO HS Torsemide 20 mg [Demadex 20 mg] 20 mg PO BID Fexofenadine HCl [Kailey] 60 mg PO BID Escitalopram Oxalate 10 mg [Lexapro 10 MG] 20 mg PO DAILY Metoprolol Tartrate 25 mg PO DAILY Instructions: Preventing Falls in the Older Adult Additional Instructions: [facility] WILL BE PROVIDING YOUR HOME HEALTH NEEDS. THEY WILL CONTACT YOU BY PHONE TO SET UP A TIME FOR INITIAL VISIT. YOU MAY CALL THEM AT [phone] WITH ANY QUESTIONS. Follow up with: PILI ALMEIDA [Primary Care Provider] - Call for Appointment
== END 2020-10-31 15:29 | disposition home health service (06) ==
LOC: ED 22:30 → ICU 10-30 03:11
PROVIDERS: ADMIT Family Medicine; ATTEND Family Medicine
DX: S22.43XA Multiple fractures of ribs, bilateral, initial encounter for closed fracture (principal); W18.30XA Fall on same level, unspecified, initial encounter; Y92.009 Unspecified place in unspecified non-institutional (private) residence as the place of occurrence of the external cause; I16.0 Hypertensive urgency; R16.0 Hepatomegaly, not elsewhere classified; S01.81XA Laceration without foreign body of other part of head, initial encounter; R07.9 Chest pain, unspecified; E11.9 Type 2 diabetes mellitus without complications; Z20.828 Contact with and (suspected) exposure to other viral communicable diseases; S09.93XA Unspecified injury of face, initial encounter; R53.1 Weakness; Z79.899 Other long term (current) drug therapy; Z79.01 Long term (current) use of anticoagulants; J44.9 Chronic obstructive pulmonary disease, unspecified; K80.20 Calculus of gallbladder without cholecystitis without obstruction; I25.10 Atherosclerotic heart disease of native coronary artery without angina pectoris; Z95.1 Presence of aortocoronary bypass graft
CPT/HCPCS: 0241U; 12013; 36000; 36415; 70450; 70486; 71260; 72125; 80053; 81001; 82947; 83036; 83605; 83880; 84484; 85025; 85379; 93005; 93041; 93268; 94200; 94760; 94770; 97161; 97530; 99285; G0378; J0360; J1817; A9270-GY

== ENCOUNTER 2020-12-05 09:09 | Emergency (ER) | payer MEDICARE, OTHER ==
--- NOTE | 2020-12-05 09:51 | XRAY ---
Indication: Fever. Comparison: None Portable chest demonstrates recent CT proven small bibasilar effusions left greater than right and cardiomegaly. Remaining heart and upper lungs unremarkable with incidental CABG surgery, left AICD, and right suprahilar calcified node. Bony thorax intact.
[2020-12-05 10:12] LABS: Hematocrit 21.5 % (42-50); Mean Cell Volume 90.3 fl (78-100); Mean Corpuscular Hemoglobin 28.6 pg (26-32); Mean Corpuscular Hgb Concent. 31.6 g/dl (32-36); Mean Platelet Volume 9.7 fl (7.5-11.0); Platelet Count 220 K/mm3 (150-450); Red Blood Count 2.38 M/mm3 (4.1-5.6); Red Cell Distribution Width 14.7 % (11.5-14.0); White Blood Count 6.1 K/mm3 (4.0-10.5)
--- NOTE | 2020-12-05 10:16 | ERPHSYRPT ---
- History of Present Illness Source: patient, EMS Exam Limitations: other (Poor histrorian) Patient Subjective Stated Complaint: Patient was sent from [facility] d/t bilateral wounds with excessive drainage. Pt also c/o wound on bottom. Patient is not himself per LTF. Triage Nursing Assessment: Patient has bilateral wounds on lower extremities bandaged by LTF. LTF states dressings are saturated within the hour. Edema present throughout L arm. Physician History: 75 yo wm from [place] w possible sepsis. Pt has chronic LE breakdown/drainage/lethargy. Timing/Duration: today, other Severity: moderate Associated Symptoms: loss of appetite, malaise, No nausea, No vomiting, No abdo darshana pain, No shortness of breath, No heartburn, No diaphoresis, No cough, No chills, No chest pain, No fever, No headaches, No rash, No syncope Allergies/Adverse Reactions: adhesive tape Allergy (Verified 12/05/20 09:33) latex Allergy (Verified 12/05/20 09:33) tetracycline Allergy (Verified 12/05/20 09:33) Home Medications: Dabigatran Etexilate Mesylate [Pradaxa] 150 mg PO BID 10/29/20 [History] Escitalopram Oxalate 10 mg [Lexapro 10 MG] 20 mg PO DAILY 10/29/20 [History] Metoprolol Tartrate 50 mg PO DAILY 10/29/20 [History] Omeprazole 40 mg PO DAILY 10/29/20 [History] Timolol Maleate/Dorzolam HCl [Cosopt Ophthalmic 10 ml] 1 drop OP BID 10/29/20 [History] Aspirin EC 81 mg [Ecotrin 81 mg] 81 mg PO DAILY 12/05/20 [History] Atorvastatin Calcium 40 mg PO HS 12/05/20 [History] Bumetanide 1 mg [Bumex 1 mg] 1 mg PO DAILY 12/05/20 [History] Fexofenadine HCl [Kailey] 60 mg PO BID 12/05/20 [History] Hydralazine HCl 50 mg PO TID 12/05/20 [History] Insulin Degludec [Tresiba Flextouch U-100] 28 units SQ QAM 12/05/20 [History] Sacubitril/Valsartan [Entresto 24 mg-26 mg Tablet] 1 each PO BID 12/05/20 [History] Hx Tetanus, Diphtheria Vaccination/Date Given: Yes (2018) Hx Influenza Vaccination/Date Given: No Hx Pneumococcal Vaccination/Date Given: No Travel Risk - International Travel Have you traveled outside of the country in past 3 weeks: No - Coronavirus Screening Are you exhibiting any of the following symptoms?: No - Vaccine Status Have you recieved a Covid-19 vaccination: Yes Air Conditioning Specialist: Moderna - Vaccination Dates Date of 2cond Vaccination (if applicable): n/a - Review of Systems Constitutional: Fatigue, Lethargy, Malaise Eyes: No Symptoms, Foreign Body Sensation Respiratory: No Symptoms Cardiac: No Symptoms Abdominal/Gastrointestinal: No Symptoms Musculoskeletal: Myalgias Skin: Cellulitis Neurological: Lethargy, No Focal Weakness Psychological: Other (Decreased LOC) Endocrine: No Symptoms Hematologic/Lymphatic: No Symptoms Immunological/Allergic: No Symptoms - Past Medical History Pertinent Past Medical History: Yes Neurological History: No Pertinent History ENT History: Cataracts, Macular Degeneration Cardiac History: Congestive Heart Failure, Coronary Artery Disease, Hypertension, Myocardial Infarction ([place]) Respiratory History: COPD, Pneumonia Endocrine Medical History: Diabetes Type II Musculoskeletal History: Arthritis, Fractures GI Medical History: GERD History: No Pertinent History Psycho-Social History: Depression Male Reproductive Disorders: No Pertinent History - Past Surgical History Past Surgical History: Yes Neuro Surgical History: No Pertinent History Cardiac: CABG, Internal Defibrillator, Pacemaker Respiratory: No Pertinent History Gastrointestinal: No Pertinent History Genitourinary: No Pertinent History Musculoskeletal: No Pertinent History Male Surgical History: No Pertinent History Other Surgical History: CABG X 4 in 1971 - Social History Smoking Status: Former smoker How long have you smoked: 15 years Exposure to second hand smoke: No Drug Use: none Patient Lives Alone: No Significant Family History: no pertinent family hx - Nursing Vital Signs Nursing Vital Signs: Initial Vital Signs Temperature 97.5 F 12/05/20 09:11 Pulse Rate 55 L 12/05/20 09:11 Blood Pressure 105/51 12/05/20 09:11 O2 Sat by Pulse Oximetry 100 12/05/20 09:11 Pain Scale Pain Intensity 0 - Physical Exam General Appearance: no apparent distress, lethargy Eye Exam: PERRL/EOMI, eyes nml inspection Ears, Nose, Throat Exam: normal ENT inspection, TMs normal, dry mucous membranes Neck Exam: normal inspection, non-tender, supple, No meningismus, No mass Respiratory Exam: airway intact, diminished breath sounds (Decreased BS L base(poor effort by pt)), No respiratory distress Cardiovascular Exam: regular rate/rhythm, murmur (2/6 CHRISTIE) Gastrointestinal/Abdomen Exam: soft, normal bowel sounds, No tenderness Rectal Exam: deferred, normal exam (No stool in vault/Unable to send stool specimen to lab as per hospital procedure) Extremity Exam: inflammation (B pre-tibial erythema/drainage/skin breakdown) Neurologic Exam: oriented x 3 (Pt lethargic) Skin Exam: other (Sacral grade2 decubitus ulcer) SpO2 Interpretation: normal SpO2: 100 O2 Delivery: Nasal Cannula - Course EKG Interpreted by Me: RATE (Paced/R67/IVCD/Prolonged QT-QTc) Ordered Tests: Active Orders 24 hr Category Date Time Status EKG-ER Only STAT Care 12/05/20 09:21 Completed IV Insertion STAT Care 12/05/20 09:21 Completed CHEST 1 VIEW (PORTABLE) Stat Exams 12/05/20 09:35 Completed BLOOD CULTURE Stat Lab 12/05/20 09:30 Received CBC W DIFF Stat Lab 12/05/20 09:52 Completed CMP Stat Lab 12/05/20 09:52 Completed Lactic Acid Stat Lab 12/05/20 09:21 Completed Manual Differential NC Stat Lab 12/05/20 09:52 Completed NT PRO BNP Routine Lab 12/05/20 09:52 Completed TROPONIN Q3H Lab 12/05/20 09:52 Completed UA W/RFX UR CULTURE Stat Lab 12/05/20 09:54 Completed Lab/Rad Data: Laboratory Result Diagrams 12/05/20 09:52 12/05/20 09:52 Laboratory Results 12/05/20 12/05/20 12/05/20 Range/Units 09:54 09:52 09:52 WBC (4.0-10.5) K/mm3 RBC (4.1-5.6) M/mm3 Hgb (12.5-18.0) gm/dl Hct (42-50) % MCV (78-100) fl MCH (26-32) pg MCHC (32-36) g/dl RDW (11.5-14.0) % Plt Count (150-450) K/mm3 MPV (7.5-11.0) fl Segmented Neutrophils (36.-66.) % Band Neutrophils (0.0-2.0) % Lymphocytes (Manual) (24-44) % Monocytes (Manual) (0.0-12.0) % Eosinophils (Manual) (0.00-3.0) % Toxic Granulation Platelet Estimate (NORMAL) RBC Morphology Anisocytosis Sodium 132 L (137-145) mmol/L Potassium 5.0 (3.5-5.1) mmol/L Chloride 99 (98-107) mmol/L Carbon Dioxide 25 (22-30) mmol/L Anion Gap 11.6 (5-15) MEQ/L BUN 118 H (9-20) mg/dL Creatinine 1.52 H (0.66-1.25) mg/dL Estimated GFR 47.6 ML/MIN Glucose 98 (74-106) mg/dL Lactic Acid (0.4-2.0) Calcium 9.4 (8.4-10.2) mg/dL Total Bilirubin 0.30 (0.2-1.3) mg/dL AST 60 H (17-59) U/L ALT 16 (0-50) U/L Alkaline Phosphatase 182 H (38-126) U/L Troponin I 0.024 (0.000-0.034) ng/mL NT-Pro-B Natriuret Pep 3490 H (0-1800) pg/mL Serum Total Protein 5.4 L (6.3-8.2) g/dL Albumin 2.8 L (3.5-5.0) g/dL Urine Color YELLOW (YELLOW) Urine Appearance CLEAR (CLEAR) Urine pH 5.0 (5-6) Ur Specific [place] 1.011 (1.005-1.025) Urine Protein NEGATIVE (Negative) Urine Ketones NEGATIVE (NEGATIVE) Urine Blood NEGATIVE (0-5) Yung/ul Urine Nitrite NEGATIVE (NEGATIVE) Urine Bilirubin NEGATIVE (NEGATIVE) Urine Urobilinogen NEGATIVE (0-1) mg/dL Ur Leukocyte Esterase NEGATIVE (NEGATIVE) Urine WBC (Auto) NONE (0-5) /HPF Urine RBC (Auto) NONE (0-2) /HPF U Hyaline Cast (Auto) 6-10 (0-2) /LPF U Epithel Cells (Auto) NONE (FEW) /HPF Urine Bacteria (Auto) NONE (NEGATIVE) /HPF Urine Culture Reflexed NO (NO) Urine Glucose NEGATIVE (NEGATIVE) mg/dL 12/05/20 12/05/20 Range/Units 09:52 09:21 WBC 6.1 (4.0-10.5) K/mm3 RBC 2.38 L (4.1-5.6) M/mm3 Hgb 6.8 L* (12.5-18.0) gm/dl Hct 21.5 L (42-50) % MCV 90.3 (78-100) fl MCH 28.6 (26-32) pg MCHC 31.6 L (32-36) g/dl RDW 14.7 H (11.5-14.0) % Plt Count 220 (150-450) K/mm3 MPV 9.7 (7.5-11.0) fl Segmented Neutrophils 70 H (36.-66.) % Band Neutrophils 6 H (0.0-2.0) % Lymphocytes (Manual) 13 L (24-44) % Monocytes (Manual) 9 (0.0-12.0) % Eosinophils (Manual) 2 (0.00-3.0) % Toxic Granulation 1+ Platelet Estimate NORMAL (NORMAL) RBC Morphology ABNORMAL Anisocytosis 1+ Sodium (137-145) mmol/L Potassium (3.5-5.1) mmol/L Chloride (98-107) mmol/L Carbon Dioxide (22-30) mmol/L Anion Gap (5-15) MEQ/L BUN (9-20) mg/dL Creatinine (0.66-1.25) mg/dL Estimated GFR ML/MIN Glucose (74-106) mg/dL Lactic Acid 1.1 (0.4-2.0) Calcium (8.4-10.2) mg/dL Total Bilirubin (0.2-1.3) mg/dL AST (17-59) U/L ALT (0-50) U/L Alkaline Phosphatase (38-126) U/L Troponin I (0.000-0.034) ng/mL NT-Pro-B Natriuret Pep (0-1800) pg/mL Serum Total Protein (6.3-8.2) g/dL Albumin (3.5-5.0) g/dL Urine Color (YELLOW) Urine Appearance (CLEAR) Urine pH (5-6) Ur Specific [place] (1.005-1.025) Urine Protein (Negative) Urine Ketones (NEGATIVE) Urine Blood (0-5) Yung/ul Urine Nitrite (NEGATIVE) Urine Bilirubin (NEGATIVE) Urine Urobilinogen (0-1) mg/dL Ur Leukocyte Esterase (NEGATIVE) Urine WBC (Auto) (0-5) /HPF Urine RBC (Auto) (0-2) /HPF U Hyaline Cast (Auto) (0-2) /LPF U Epithel Cells (Auto) (FEW) /HPF Urine Bacteria (Auto) (NEGATIVE) /HPF Urine Culture Reflexed (NO) Urine Glucose (NEGATIVE) mg/dL - Progress Progress Note: 12/05/20 11:[address] [facility] Departure Disposition: Transfer Clinical Impression: GI bleed, Renal failure, Cellulitis Condition: Stable Critical Care Time: No Referrals: PILI ALMEIDA [Primary Care Provider] -
[2020-12-05 10:18] LABS: Appearance CLEAR (CLEAR); Bilirubin NEGATIVE (NEGATIVE); Blood NEGATIVE Ery/ul (0-5); Glucose NEGATIVE (NEGATIVE); Ketones NEGATIVE (NEGATIVE); Leukocyte Esterase NEGATIVE (NEGATIVE); Nitrite NEGATIVE (NEGATIVE); Protein,Urine Dip NEGATIVE (Negative); Specific Gravity 1.011 (1.005-1.025); Urobilinogen NEGATIVE mg/dL (0-1)
[2020-12-05 10:20] LABS: Hemoglobin 6.8 gm/dl (12.5-18.0)
[2020-12-05 10:26] LABS: ALBUMIN 2.8 g/dL (3.5-5.0); ANION GAP 11.6 MEQ/L (5-15); BILIRUBIN,TOTAL 0.3 mg/dL (0.2-1.3); Calcium 9.4 mg/dL (8.4-10.2); Creatinine 1 1.52 mg/dL (0.66-1.25); EST GLOMERULAR FILTRATION RATE 47.6 ML/MIN; Total Protein 5.4 g/dL (6.3-8.2)
[2020-12-05 10:40] LABS: TROPONIN 0.024 ng/mL (0.000-0.034)
[2020-12-05 12:09] VITALS: BP 123/54; PULSE 70; O2SAT 100
[2020-12-05 14:39] LABS: BAND 6 % (0.0-2.0); Eosinophil 2 % (0.00-3.0); Lymphocytes 13 % (24-44); Monocyte 9 % (0.0-12.0); Neutrophils 70 % (36.-66.); Total Cells Counted 100
[2020-12-05 14:40] LABS: ANISOCYTOSIS 1+; Platelet Estimate NORMAL (NORMAL); Toxic Granulation 1+
== END 2020-12-05 12:32 | disposition short-term general hospital (02) ==
LOC: ED 09:09
DX: K92.2 Gastrointestinal hemorrhage, unspecified (principal); N19 Unspecified kidney failure; Z79.899 Other long term (current) drug therapy; L03.90 Cellulitis, unspecified; I50.9 Heart failure, unspecified; I25.810 Atherosclerosis of coronary artery bypass graft(s) without angina pectoris; I10 Essential (primary) hypertension; E11.9 Type 2 diabetes mellitus without complications; K21.9 Gastro-esophageal reflux disease without esophagitis; Z95.810 Presence of automatic (implantable) cardiac defibrillator
CPT/HCPCS: 36000; 36415; 71045; 80053; 81001; 83605; 83880; 84484; 85025; 87040; 93005; 99285

== ENCOUNTER 2021-03-06 10:00 | Emergency (ER) | payer MEDICARE, OTHER ==
--- NOTE | 2021-03-06 10:04 | ERPHSYRPT ---
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 Today, he tripped and lost his balance and hit his left side ribs. He has a remote history of bilateral rib fractures. Patient is no longer on any anticoagulation therapy. He does take a baby aspirin a day. He has no complaints of pain. But family members are concerned because he has lost a lot of weight in their abnormal looking ribs on both sides. They concerned about rib fractures and/or internal lung injury. Patient was noted to have skin tears on bilateral elbows. He has full range of motion without pain in left shoulder left elbow. He denies head and neck complaints. He denies head neck injuries. Occurred: just prior to arrival Reason for Fall: lost balance, tripped Injuries/Pain Location: upper extremity (Left elbow skin tear), chest (Left lateral lower ribs) Loss of Consciousness: no loss of consciousness Severity of Pain-Max: none Severity of Pain-Current: none Modifying Factors: Improves With: nothing Associated Symptoms (Fall): denies symptoms Allergies/Adverse Reactions: adhesive tape Allergy (Verified 12/12/20 10:59) furosemide Allergy (Verified 12/12/20 12:53) latex Allergy (Verified 12/12/20 10:59) tetracycline Allergy (Verified 12/12/20 10:59) Home Medications: Escitalopram Oxalate 10 mg [Lexapro 10 MG] 20 mg PO DAILY 10/29/20 [History] Metoprolol Tartrate 50 mg PO DAILY 10/29/20 [History] Omeprazole 40 mg PO DAILY 10/29/20 [History] Timolol Maleate/Dorzolam HCl [Cosopt Ophthalmic 10 ml] 1 drop OP BID 10/29/20 [History] Aspirin EC 81 mg [Ecotrin 81 mg] 81 mg PO DAILY 12/05/20 [History] Atorvastatin Calcium 40 mg PO HS 12/05/20 [History] Bumetanide 1 mg [Bumex 1 mg] 1 mg PO DAILY 12/05/20 [History] Fexofenadine HCl [Kailey] 60 mg PO BID 12/05/20 [History] Hydralazine HCl 50 mg PO TID 12/05/20 [History] Insulin Degludec [Tresiba Flextouch U-100] 6 units SQ QAM 12/05/20 [History] Sacubitril/Valsartan [Entresto 24 mg-26 mg Tablet] 1 each PO BID 12/05/20 [History] Multivitamin [Multi-Vitamin Daily] 1 tab PO DAILY 12/12/20 [History] Sennosides/Docusate Sodium [Senokot-S Tablet] 1 tab PO DAILY 12/12/20 [History] Hx Tetanus, Diphtheria Vaccination/Date Given: Yes (2018) Hx Influenza Vaccination/Date Given: No Hx Pneumococcal Vaccination/Date Given: No Travel Risk - International Travel Have you traveled outside of the country in past 3 weeks: No - Coronavirus Screening Are you exhibiting any of the following symptoms?: No Close contact with a COVID-19 positive Pt in past 14-21 Days: No - Vaccine Status Have you recieved a Covid-19 vaccination: No Training Lead: Moderna - Vaccination Dates Date of 2cond Vaccination (if applicable): N/A - Review of Systems Constitutional: No Symptoms Eyes: No Symptoms Ears, Nose, & Throat: No Symptoms Respiratory: No Symptoms Cardiac: No Symptoms Abdominal/Gastrointestinal: No Symptoms Genitourinary Symptoms: No Symptoms Musculoskeletal: Fall, Injury (Skin tears bilateral elbows) Skin: Other (Skin tears bilateral elbows) Neurological: No Symptoms Psychological: No Symptoms Endocrine: No Symptoms Hematologic/Lymphatic: No Symptoms Immunological/Allergic: No Symptoms All Other Systems: Reviewed and Negative - Past Medical History Pertinent Past Medical History: Yes Neurological History: No Pertinent History ENT History: Cataracts, Macular Degeneration Cardiac History: Congestive Heart Failure, Coronary Artery Disease, Hypertension, Myocardial Infarction (VT) Respiratory History: COPD, Pneumonia Endocrine Medical History: Diabetes Type II Musculoskeletal History: Arthritis, Fractures GI Medical History: GERD History: No Pertinent History Psycho-Social History: Depression Male Reproductive Disorders: No Pertinent History - Past Surgical History Past Surgical History: Yes Neuro Surgical History: No Pertinent History Cardiac: CABG, Internal Defibrillator, Pacemaker Respiratory: No Pertinent History Gastrointestinal: No Pertinent History Genitourinary: No Pertinent History Musculoskeletal: No Pertinent History Male Surgical History: No Pertinent History Other Surgical History: CABG X 4 in 1971 - Social History Smoking Status: Former smoker How long have you smoked: 15 years Exposure to second hand smoke: No Drug Use: none Patient Lives Alone: No (Adrian) Significant Family History: no pertinent family hx - Nursing Vital Signs Nursing Vital Signs: Initial Vital Signs Temperature 97.8 F 03/06/21 10:02 Pulse Rate 63 03/06/21 10:02 Respiratory Rate 18 03/06/21 10:02 Blood Pressure 137/59 03/06/21 10:02 O2 Sat by Pulse Oximetry 98 03/06/21 10:02 Pain Scale Pain Intensity 0 - Manny Coma Score Best Eye Response ([place]): (4) open spontaneously Best Verbal Response ([place]): (5) oriented Best Motor Response (Manny): (6) obeys commands Manny Total: 15 - Physical Exam General Appearance: no apparent distress, alert Head Injury: no evidence of injury Eye Exam: PERRL/EOMI ENT Exam: airway nml, nml ext.inspection, No evidence of ENT injury Neck Exam: supple, trachea midline, full range of motion, normal alignment, normal inspection Respiratory/Chest Exam: normal breath sounds, No chest tenderness, No respiratory distress, No ecchymosis, No crepitus Cardiovascular Exam: normal heart sounds, regular rate/rhythm Gastrointestinal Exam: soft, normal bowel sounds, No tenderness Rectal Exam: No not done Back Exam: normal inspection, normal range of motion, No CVA tenderness, No vertebral tenderness Extremity Exam: normal range of motion, other (Skin tears bilateral elbows. 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 Single 3 to 4 cm skin tear left elbow) SpO2 Interpretation: normal O2 Delivery: Room Air - Course Nursing assessment & vital signs reviewed: Yes Ordered Tests: Active Orders 24 hr Category Date Time Status CHEST 1 VIEW (PORTABLE) Stat Exams 03/06/21 11:11 Completed RIBS UNILATERAL Stat Exams 03/06/21 11:11 Completed - Progress Progress: unchanged Progress Note: 03/06/21 11:12 Patient was returned from radiology. Patient states that he cannot lay flat to do the chest CT. He refuses to attempt to do so. He states he is not in pain he is just short of breath when he lays flat and that has been a chronic issue. We will obtain chest x-ray and rib series. 03/06/21 12:05 Unilateral rib x-ray films show old fractures of 66 and eighth rib. Chest x-ray shows cardiomegaly with evidence of congestive heart failure with a small right base pleural effusion. Counseled pt/family regarding: diagnosis, need for follow-up, rad results - Departure Departure Disposition: Home Clinical Impression: Fall with no significant injury Condition: Stable Critical Care Time: No Referrals: PILI ALMEIDA [Primary Care Provider] - Additional Instructions: Continue your medication as prescribed. Follow-up with your primary care physician for further management.
[2021-03-06 10:07] VITALS: O2SAT 98
--- NOTE | 2021-03-06 11:56 | XRAY ---
Indication: Chest pain following fall. Comparison: December 12, 2020. Portable chest again demonstrates cardiomegaly, central vascular congestion, increasing moderate left effusion/atelectasis, and small right base effusion/atelectasis favoring cardiac decompensation/CHF. Superimposed pneumonia not completely excluded. Again incidental CABG, left AICD, and right Port-A-Cath.
--- NOTE | 2021-03-06 11:58 | XRAY ---
Indication: Pain following fall. Comparison: None Single AP left ribs demonstrates osteopenia and old lateral 6/7/8 rib fractures. Chest reported separately.
[2021-03-06 12:13] VITALS: BP 136/58; PULSE 67
== END 2021-03-06 12:25 | disposition home or self-care (01) ==
LOC: ED 10:00
DX: S51.012A Laceration without foreign body of left elbow, initial encounter (principal); S51.011A Laceration without foreign body of right elbow, initial encounter; W18.30XA Fall on same level, unspecified, initial encounter; Z91.81 History of falling; Y93.9 Activity, unspecified; Y92.9 Unspecified place or not applicable; C22.1 Intrahepatic bile duct carcinoma; Z79.899 Other long term (current) drug therapy; I50.9 Heart failure, unspecified; I25.2 Old myocardial infarction; J44.9 Chronic obstructive pulmonary disease, unspecified; E11.9 Type 2 diabetes mellitus without complications; Z95.810 Presence of automatic (implantable) cardiac defibrillator; I25.810 Atherosclerosis of coronary artery bypass graft(s) without angina pectoris
CPT/HCPCS: 71045; 71100; 99284